=== PATIENT | male | born 1980 | race Caucasian/White ===

== ENCOUNTER 2021-07-02 11:44 | Emergency (ER) | payer OTHER ==
[~2021-07-02] VITALS: Ht 185.4 cm; Wt 77.1 kg
[~2021-07-02 11:44] MED LIST: AMOCLA875 PO; CLIN300 PO; OXYC5 PO; PENVK500 PO; TRAM50 PO; Zofran Odt4 MG PO
[2021-07-02] MEDS ORDERED: Naprosyn500 MG PO (12:32)
== END 2021-07-02 12:33 | disposition home or self-care (01) ==
LOC: ER 11:44
DX: M75.101 Unspecified rotator cuff tear or rupture of right shoulder, not specified as traumatic (principal); F17.200 Nicotine dependence, unspecified, uncomplicated
CPT/HCPCS: 73030; 99283-25

== ENCOUNTER 2023-02-08 17:24 | Emergency (ER) | payer BC, OTHER ==
[~2023-02-08] VITALS: Ht 185.4 cm; Wt 82.1 kg
[~2023-02-08 17:24] MED LIST changes: +Naprosyn500 MG PO
[2023-02-08 17:47] VITALS: BP 155/90
[2023-02-08 18:05] LABS: BASOPHILS ABSOLUTE AUTO 0.03 K/mm3 (0.00-0.23); BASOPHILS PERCENT AUTO 0 % (0-2); EOSINOPHILS ABSOLUTE AUTO 0.26 K/mm3 (0.00-0.68); EOSINOPHILS PERCENT AUTO 2 % (0-6); Hematocrit 42.4 % (37.0-53.0); IMMATURE GRAN ABSOLUTE AUTO 0.03 K/mm3 (0.00-0.10); IMMATURE GRAN PERCENT AUTO 0 % (0-1); LYMPHOCYTES ABSOLUTE AUTO 2.93 K/mm3 (0.84-5.20); LYMPHOCYTES PERCENT AUTO 23 % (21-46); MONOCYTES ABSOLUTE AUTO 0.98 K/mm3 (0.16-1.47); MONOCYTES PERCENT AUTO 8 % (4-13); Mean Corpuscular HGB 31.5 pg (26.0-34.0); Mean Corpuscular HGB Conc 35.4 g/dL (31.5-36.5); Mean Corpuscular Volume 89 fL (80-100); Mean Platelet Volume 9.4 fL (9.1-12.4); NEUTROPHILS PERCENT AUTO 67 % (41-73); Platelet Count 240 K/mm3 (150-400); RDW Coefficient Variation 12.9 % (11.7-14.2); RDW Standard Deviation 42.4 fL (35.1-46.3); Red Blood Cell Count 4.76 M/mm3 (4.30-5.90); White Blood Cell Count 12.63 K/mm3 (4.00-11.30)
[2023-02-08] MEDS ORDERED: TERB250 PO (18:12)
[2023-02-08 18:23] LABS: Albumin, Blood 3.8 g/dL (3.4-5.0); Albumin/Globulin Ratio 1.1 (0.8-1.8); Bilirubin, Total 0.2 mg/dL (0.1-1.0); Bun/Creatinine Ratio 13.9 (12.0-20.0); Calcium, Blood 8.9 mg/dL (8.5-10.1); Creatinine, Blood 1.08 mg/dL (0.60-1.20); Globulin, Blood 3.5 g/dL (2.2-4.0); Potassium, Blood 3.5 mmol/L (3.5-5.5); Total Protein, Blood 7.3 g/dL (6.4-8.2)
[2023-02-08] MEDS ORDERED: SULTRIDS PO (18:52)
== END 2023-02-08 19:04 | disposition home or self-care (01) ==
LOC: ER 17:24
PROVIDERS: Physician Assistant
DX: L03.115 Cellulitis of right lower limb (principal); D72.829 Elevated white blood cell count, unspecified; F17.210 Nicotine dependence, cigarettes, uncomplicated
CPT/HCPCS: 73630; 80053; 85025; 85651; A9270; J1885